=== PATIENT | female | born 1960 | race Caucasian/White ===

== ENCOUNTER 2025-01-16 09:54 | Emergency (ER) | payer OTHER, SELFPAY ==
[2025-01-16 10:07] VITALS: BP 172/82; PULSE 89; RESP 16; TEMP 36.7; O2SAT 99
--- NOTE | 2025-01-16 10:38 | ED_ITS ---
HPI - Female Genitourinary General Chief complaint: Urogenital-Female Stated complaint: Vaginal Problems Time Seen by Provider: 01/16/25 10:18 Source: patient and RN notes reviewed Mode of arrival: ambulatory Limitations: no limitations History of Present Illness HPI Narrative: Patient presents today complaining of a 2 month history of irritation, redness, and severe itching to the groin in skin folds. She was seen by her PCP initially and was prescribed some topical nystatin/triamcinolone cream that she used without relief. Six weeks ago she tried some vaginal still and hydrocortisone without relief. Related Data Home Medications ?Medication ?Instructions ?Recorded ?Confirmed ?Last Taken ?Type nystatin-triamcinolone 100,000 topical 01/16/25 Unknown History unit/gram-0.1 % topical ointment Allergies Allergy/AdvReac Type Severity Reaction Status Date / Time No Known Allergies Allergy Verified 01/16/25 09:55 Review of Systems Review of Systems: CONSTITUTIONAL: Denies body aches, fever, chills, or sweats. EYES: Denies visual changes, redness, or discharge. ENT: Denies rhinorrhea, congestion, sore throat, or otalgia. CARDIOVASCULAR: Denies chest pain, palpitations, or edema. RESPIRATORY: Denies cough or dyspnea. GASTROINTESTINAL: Denies abdominal pain, nausea, vomiting, or diarrhea. GENITOURINARY: Denies dysuria or hematuria. SKIN: Pruritic rash MUSCULOSKELETAL: Denies back pain, joint pain, or myalgia. NEUROLOGIC: Denies headache, numbness, tingling, or weakness. PSYCH: Denies depression or anxiety. PMFSH Comments At time of signature, I have reviewed and agree with nursing past medical, surgical, social and family history unless otherwise noted. Please see nursing chart for further information. There is no relevant family history pertinent to the presenting complaint Exam Narrative: GENERAL: Well-appearing, well-nourished, and in no acute distress. HEAD: Normocephalic, atraumatic. EYES: EOMI. No redness or drainage. Conjunctivae normal. ENT: Mucous membranes pink and moist. NECK: Normal AROM. CHEST: No respiratory distress. EXTREMITIES: Normal range of motion. No edema. SKIN: Warm, dry. Capillary refill normal. Normal skin turgor. Erythematous maculopapular rash to the lower abdominal fold, groin folds, labia with some open wounds of skin breakdown to these areas as well. NEURO: No focal deficits. Alert and oriented x3. Gait steady. PSYCH: Normal affect. No signs of depression or anxiety. Course Course Level of Care: Express Care Visit Vital Signs Vital signs: Vital Signs Temperature 98.1 F 01/16/25 10:07 Pulse Rate 89 01/16/25 10:07 Respiratory Rate 16 01/16/25 10:07 Blood Pressure 172/82 H 01/16/25 10:07 Pulse Oximetry 99 01/16/25 10:07 Oxygen Delivery Room Air 01/16/25 10:07 Temperature 98.1 F 01/16/25 10:07 Pulse Rate 89 01/16/25 10:07 Respiratory Rate 16 01/16/25 10:07 Blood Pressure 172/82 H 01/16/25 10:07 Pulse Oximetry 99 01/16/25 10:07 Oxygen Delivery Room Air 01/16/25 10:07 Reviewed MDM - Female Genitourinary MDM Narrative Medical decision making narrative: Patient will be treated with once weekly fluconazole for 4 weeks for intertrigo candidiasis. She will also apply topical clotrimazole. Anticipatory guidance given. Differential Diagnosis Differential diagnosis: Likely other (Candidiasis, intertrigo) Critical Care Time Critical Care Time Critical Care Time: No Discharge Plan Discharge Clinical Impression: Candidiasis, intertrigo Patient Disposition: Home Condition: Stable Instructions: Skin Yeast Infection (ED) Additional Instructions: Take the fluconazole as prescribed. Use topical Clotrimazole(Lotrimin) twice daily. Follow-up with your PCP in 2 weeks if symptoms are not improving. Your blood pressure was elevated above 120/80 today at Urgent Care. This puts you above the threshold for follow up. Please schedule a followup visit with your personal physician as soon as possible, for further evaluation and treatment. Even blood pressure exceeding 120/80 may indicate pre-hypertension. Patient Language: Kinyarwanda Prescriptions: New fluconazole 150 mg tablet 150 mg PO WEEKLY 28 Days Qty: 4 0RF No Action nystatin-triamcinolone 100,000-0.1 unit/gram-% ointment TOPICAL Follow-up/Referrals: Dar,Claudia Nava DO [Primary Care Provider] - Time of Disposition: 10:38
== END 2025-01-16 10:45 | disposition home or self-care (01) ==
PROVIDERS: Emergency Provider Nurse Practitioner; PCP Internal Medicine
DX: B37.2 Candidiasis of skin and nail (principal)
CPT/HCPCS: 99203; G0463